=== PATIENT | female | born 1940 | race Caucasian/White ===

== ENCOUNTER 2016-08-01 11:31 | Day surgery (SDC) | payer MEDICARE ==
[2016-08-01] MEDS ORDERED: NS 1000 ML IV SCH (13:00)
[2016-08-01] MEDS ORDERED: POVIDONE IODINE 5% (ANTISEPSIS KIT) 4 APPLICATIONS EACH NARE PRN (13:00)
[2016-08-01] MEDS ORDERED: METOPROLOL TARTRATE 25 MG TAB PO PRN (13:00)
[2016-08-01] MEDS ORDERED: CHLORHEXIDINE GLUCONATE 2 % 1 PACK (2 CLOTHS) TOPICAL PRN (13:00)
[2016-08-01] MEDS ORDERED: CHLORHEXIDINE GLUCONATE 2 % 1 PACK (2 CLOTHS) TOPICAL SCH (13:00)
[2016-08-01] MEDS ORDERED: POVIDONE IODINE 5% (ANTISEPSIS KIT) 4 APPLICATIONS EACH NARE SCH (13:00)
[2016-08-01] MEDS ORDERED: SODIUM CHLORID 0.9% 500 ML IV PRN (13:00)
[2016-08-01] MEDS ORDERED: LACTATED RINGER'S 1000 ML IV PRN (13:00)
[2016-08-01] MEDS ORDERED: ceFAZolin 2 GM PREMIX 50 ML IV SCH (13:00)
[2016-08-01] MEDS ORDERED: MUPIROCIN 2% OINT 1 APPLIC/GM SYR NASAL SCH (13:00)
[2016-08-01] MEDS ORDERED: INSULIN HUMAN REGULAR 1,000 UNITS/10 ML VIAL SQ PRN (13:00)
[2016-08-01] MEDS ORDERED: PLAV75TA29 PO (13:06)
[2016-08-01] MEDS ORDERED: FISHCAP4 PO (13:06)
[2016-08-01] MEDS ORDERED: ASPI81TA5 PO (13:06)
[2016-08-01] MEDS ORDERED: ATOR20TA15 PO (13:06)
[2016-08-01] MEDS ORDERED: HYDR25TA5 PO (13:06)
[2016-08-01] MEDS ORDERED: BENA20TA PO (13:06)
[2016-08-01] MEDS ORDERED: LEVE500 PO (13:06)
[2016-08-01] MEDS ORDERED: VANCOMYCIN HCL 1000 MG ON-CALL/NS 250 ML IV SCH ×2 (13:15)
--- NOTE | 2016-08-01 15:04 | CF ---
cc: ULYSSES MUSTAFA M.D. PROCEDURE PERFORMED Transesophageal echo. INDICATION Stroke. CONSENT Full informed consent was obtained prior to the procedure. The risk of , bleeding, perforation, aspiration, foreseen and unforeseen complications were reviewed. The patient fully appeared to understand the risks. PROCEDURAL STATEMENT The patient was draped and prepped in the usual manner. Full DERECK was performed. The scope was placed to 40 cm. One bubble study was performed (agitated contrast solution). 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 Agitated contrast solution showed [id number] shunting. The aortic valve was trileaflet and intact with no significant aortic regurgitation. Mitral valve appeared intact with no significant mitral regurgitation. LV function was normal ____ normal. CONCLUSION Strongly positive [id number] shunting through a PFO with evidence of positive bubble study. PLAN Proceed with loop recorder placement to see if there is concomitant atrial fibrillation. Ulysses Mustafa MD, FRCP,[facility] /2:32 PM /2:46 PM
--- NOTE | 2016-08-01 15:04 | MP ---
cc: SHAMIKA LUBIN MD, HUMAYUN A. M.D. DATE OF SURGERY 08/01/16 OPERATION Loop recorder placement INDICATION Stroke, rule out atrial fibrillation. PROCEDURE IN DETAIL The patient was anesthetized for the transesophageal echo. The patient given further lidocaine in the region of the third intercostal space. ___ Medtronic device, an incision was placed, through this a loop recorder was injected subcutaneously. CONCLUSION Successful placement of Reveal Medtronic loop recorder to rule out significant atrial fibrillation as cause of the patient's stroke. Ulysses Mustafa MD, FRCP,[facility]/EO /2:34 PM /2:54 PM
== END 2016-08-01 16:11 | disposition home or self-care (01) ==
LOC: HDOC 11:31 → HDIC 11:32 → HDOC 16:11
PROVIDERS: ATTEND Internal Medicine Cardiovascular Disease
DX: I49.9 Cardiac arrhythmia, unspecified (principal); I10 Essential (primary) hypertension; R56.9 Unspecified convulsions; E66.9 Obesity, unspecified; Z86.73 Personal history of transient ischemic attack (TIA), and cerebral infarction without residual deficits; Z87.891 Personal history of nicotine dependence; Z79.02 Long term (current) use of antithrombotics/antiplatelets; Z79.82 Long term (current) use of aspirin
CPT/HCPCS: 33282; C1764; J0690; 93312; 93320; 93325